=== PATIENT | male | born 1960 | race Two or more races ===

== ENCOUNTER 2017-05-30 07:04 | Inpatient (IN) | payer OTHER ==
[~2017-05-30] VITALS: Ht 172.7 cm; Wt 106.2 kg
[2017-05-30] MEDS ORDERED: IBUP-1484 PO (07:50)
[2017-05-30] MEDS ORDERED: CEFTRIAXONE PMX 1GM/50ML 50 ML IV ONE (10:00)
[2017-05-30 10:09] LABS: BLOOD UREA NITROGEN 9 mg/dL (7-18)
[2017-05-30] MEDS ORDERED: CEFTRIAXONE PMX 1GM/50ML 50 ML ONE (10:23)
[2017-05-30 10:24] LABS: HEMATOCRIT 45.1 % (39.2-51.8); HEMOGLOBIN 15.4 g/dL (13.7-18.0)
[2017-05-30] MEDS ORDERED: CEPH-368 PO (10:35)
[2017-05-30] MEDS ORDERED: SULF-169 PO (10:36)
[2017-05-30] MEDS ORDERED: CLOT30CR17 TP (10:37)
[2017-05-30 12:06] VITALS: BP 127/82
[2017-05-30] MEDS ORDERED: VANCOMYCIN PER PHARMACY MC PRN (13:00)
[2017-05-30] MEDS ORDERED: SODIUM CHLORIDE 0.9% 1,000 ML IV SCH (13:00)
[2017-05-30] MEDS ORDERED: PHARMACOKINETIC CONSULTATION MC ONE (13:30)
[2017-05-30] MEDS ORDERED: PHARMACOKINETIC MONITORING MC PRN (13:30)
[2017-05-30] MEDS ORDERED: ONDANSETRON 2MG/ML, 2ML IVPush PRN (14:00)
[2017-05-30] MEDS ORDERED: TEMAZEPAM 15 MG CAPSULE PO PRN (14:00)
[2017-05-30] MEDS ORDERED: morphine SULFATE 10 MG/ML, 1ML IVPush PRN (14:00)
[2017-05-30] MEDS ORDERED: hydrALAzine 20 MG/ML, 1ML IVPush PRN (14:00)
[2017-05-30] MEDS ORDERED: METHOCARBAMOL 500 MG TABLET PO PRN (14:30)
[2017-05-30] MEDS: AMPICILLIN/SULBACTAM 1,500 MG in SODIUM CHLORIDE 0.9% 50 ML IV SCH ×2 (14:48→22:14)
[2017-05-30] MEDS ORDERED: LORazepam 2 MG/ML, 1ML IVPush ONE (15:00)
[2017-05-30] MEDS: VANCOMYCIN 1,900 MG in SODIUM CHLORIDE 0.9% 250 ML IV SCH (15:22)
[2017-05-30] MEDS: ENOXAPARIN 40 MG/0.4 ML SQ SCH (15:22)
[2017-05-30] MEDS ORDERED: GADOBUTROL 10 MMOL/10 ML PFS ONE (15:25)
[2017-05-30] MEDS: HYDROcodone/APAP 5/325 TABLET PO PRN (16:32)
[2017-05-30] MEDS: DIPHENHYDRAMINE 25 MG CAPSULE PO PRN (16:58)
[2017-05-30 20:20] VITALS: BP 102/58
[2017-05-31 01:28] VITALS: BP 114/66
[2017-05-31] MEDS: VANCOMYCIN 1,900 MG in SODIUM CHLORIDE 0.9% 250 ML IV SCH ×2 (03:09→14:34)
[2017-05-31] MEDS: HYDROcodone/APAP 5/325 TABLET PO PRN (03:25)
[2017-05-31 05:39] LABS: HEMATOCRIT 42.2 % (39.2-51.8); HEMOGLOBIN 14.3 g/dL (13.7-18.0)
[2017-05-31] MEDS: AMPICILLIN/SULBACTAM 1,500 MG in SODIUM CHLORIDE 0.9% 50 ML IV SCH ×3 (05:48→21:20)
[2017-05-31 06:09] LABS: BLOOD UREA NITROGEN 14 mg/dL (7-18)
[2017-05-31 06:30] VITALS: BP 122/71
[2017-05-31] MEDS: PANTOPROZOLE 40MG TABLET PO SCH (08:02)
[2017-05-31 12:49] VITALS: BP 139/94
[2017-05-31] MEDS: ENOXAPARIN 40 MG/0.4 ML SQ SCH (14:34)
[2017-05-31 19:46] VITALS: BP 118/73
[2017-05-31] MEDS: DIPHENHYDRAMINE 25 MG CAPSULE PO PRN (21:20)
[2017-05-31] MEDS: SIMVASTATIN 40 MG TABLET PO SCH (21:20)
[2017-06-01 01:16] VITALS: BP 138/81
[2017-06-01] MEDS: VANCOMYCIN 1,900 MG in SODIUM CHLORIDE 0.9% 250 ML IV SCH ×2 (02:33→15:02)
[2017-06-01] MEDS: AMPICILLIN/SULBACTAM 1,500 MG in SODIUM CHLORIDE 0.9% 50 ML IV SCH ×3 (05:39→21:26)
[2017-06-01] MEDS: PANTOPROZOLE 40MG TABLET PO SCH (07:45)
[2017-06-01 09:06] VITALS: BP 144/81
[2017-06-01 13:30] VITALS: BP 137/81
[2017-06-01] MEDS: ENOXAPARIN 40 MG/0.4 ML SQ SCH (15:00)
[2017-06-01 20:00] VITALS: BP 137/82
[2017-06-01] MEDS: HYDROcodone/APAP 5/325 TABLET PO PRN (21:23)
[2017-06-01] MEDS: SIMVASTATIN 40 MG TABLET PO SCH (21:23)
[2017-06-01] MEDS: DIPHENHYDRAMINE 25 MG CAPSULE PO PRN (21:24)
[2017-06-02 01:32] VITALS: BP 138/63
[2017-06-02] MEDS: AMPICILLIN/SULBACTAM 1,500 MG in SODIUM CHLORIDE 0.9% 50 ML IV SCH ×3 (05:57→23:16)
[2017-06-02 06:47] LABS: BLOOD UREA NITROGEN 15 mg/dL (7-18)
[2017-06-02 07:35] VITALS: BP 140/88
[2017-06-02] MEDS: PANTOPROZOLE 40MG TABLET PO SCH (08:19)
[2017-06-02] MEDS ORDERED: SIMV40TA3 PO (09:08)
[2017-06-02] MEDS ORDERED: OMEP-110 PO (09:08)
[2017-06-02] MEDS ORDERED: TRAM50TA2 PO (09:08)
[2017-06-02] MEDS ORDERED: LINE600T7 PO (09:08)
[2017-06-02] MEDS ORDERED: FLU VACC QS2017-18 (36MOS+) UP/PF 0.5 ML IM-VACC ONE (11:30)
[2017-06-02] MEDS: LINEZOLID 600 MG TABLET PO SCH ×2 (13:14→21:31)
[2017-06-02 13:15] VITALS: BP 143/76
[2017-06-02] MEDS: ACETAMINOPHEN 325 MG TABLET PO PRN ×2 (14:47→21:35)
[2017-06-02] MEDS: ENOXAPARIN 40 MG/0.4 ML SQ SCH (18:16)
[2017-06-02 19:43] VITALS: BP 148/88
[2017-06-02] MEDS: SIMVASTATIN 40 MG TABLET PO SCH (21:31)
[2017-06-02] MEDS: DIPHENHYDRAMINE 25 MG CAPSULE PO PRN (21:35)
[2017-06-03 02:00] VITALS: BP 140/81
[2017-06-03] MEDS: AMPICILLIN/SULBACTAM 1,500 MG in SODIUM CHLORIDE 0.9% 50 ML IV SCH (07:00)
[2017-06-03] MEDS: PANTOPROZOLE 40MG TABLET PO SCH (07:30)
[2017-06-03] MEDS: LINEZOLID 600 MG TABLET PO SCH (07:57)
[2017-06-03 08:25] VITALS: BP 149/86
== END 2017-06-03 12:32 | disposition home or self-care (01) | DRG 603 ==
LOC: ED 07:15 → EDIP 09:50 → 4WST 11:47
PROVIDERS: ADMIT Hospitalist; ATTEND Internal Medicine
DX: L03.116 Cellulitis of left lower limb (principal); E66.01 Morbid (severe) obesity due to excess calories; I50.9 Heart failure, unspecified; L97.429 Non-pressure chronic ulcer of left heel and midfoot with unspecified severity; Z68.35 Body mass index [BMI] 35.0-35.9, adult; E78.5 Hyperlipidemia, unspecified; I51.7 Cardiomegaly; K21.9 Gastro-esophageal reflux disease without esophagitis; Z87.891 Personal history of nicotine dependence; Z96.652 Presence of left artificial knee joint; B95.62 Methicillin resistant Staphylococcus aureus infection as the cause of diseases classified elsewhere
CPT/HCPCS: 36415; 80048; 80061; 80202; 82040; 82565; 82962; 83036; 83735; 84100; 84443; 84520; 85025; 87040; 87070; 87077; 87186; 87205; 90686; 93306; 99285; A9585; J0696; J1650; J3370; J0295; J2060; J7030; J7050; Q0163